=== PATIENT | male | born 1985 | race Caucasian/White ===

== ENCOUNTER 2020-02-22 23:09 | Emergency (ER) | payer MEDICAID ==
[~2020-02-22] VITALS: Ht 167.6 cm; Wt 72.0 kg
[2020-02-23 00:06] LABS: BASOPHILS % 0.5 % (0.0-2.0); EOSINOPHILS % 6.9 % (0.0-5.0); HEMOGLOBIN. 13.1 g/dL (14.0-18.0); LYMPHOCYTES % 33.4 % (20.0-50.0); MEAN CORPUSCULAR HEMOGLOBIN 28.6 pg (28.0-32.0); MEAN CORPUSCULAR VOLUME 83.4 fL (80.0-94.0); MEAN PLATELET VOLUME 7.9 fl (7.4-10.4); MONOCYTES % 8.7 % (2.0-8.0); NEUTROPHILS % 50.5 % (40.0-76.0); PLATELET 301 x1000/uL (130-400); RED BLOOD CELL COUNT 4.56 mill/uL (4.7-6.1); RED CELL DISTRIBUTION WIDTH 13.3 % (11.6-14.6)
[2020-02-23 00:13] LABS: CHLORIDE 103 mEq/L (98-107)
[2020-02-23] MEDS: HYDROCODONE/ACETAMINOPHEN 10/325MG TABLET PO ONE (01:37)
[2020-02-23] MEDS: SULFAMETHOXAZOLE/TRIMETHOPRIM 400/80MG TAB PO ONE (02:07)
[2020-02-23] MEDS: CEPHALEXIN 250MG CAPSULE PO ONE (02:08)
[2020-02-23 02:30] VITALS: BP 153/90
== END 2020-02-23 02:45 | disposition home or self-care (01) ==
LOC: ER 23:38
DX: L03.115 Cellulitis of right lower limb (principal); Z86.11 Personal history of tuberculosis; Z98.890 Other specified postprocedural states
CPT/HCPCS: 36415; 73562; 73590; 73610; 80053; 85025; 93005; 93971; 99285

== ENCOUNTER 2020-04-19 10:05 | Emergency (ER) | payer MEDICAID ==
[~2020-04-19] VITALS: Ht 167.6 cm; Wt 73.0 kg
[2020-04-19 11:31] LABS: BASOPHILS % 0.2 % (0.0-2.0); CHLORIDE 101 mEq/L (98-107); EOSINOPHILS % 0.7 % (0.0-5.0); HEMATOCRIT. 42.9 % (42.0-52.0); HEMOGLOBIN. 14.6 g/dL (14.0-18.0); LYMPHOCYTES % 9.2 % (20.0-50.0); MEAN CORPUSCULAR VOLUME 82.3 fL (80.0-94.0); MEAN PLATELET VOLUME 8.7 fl (7.4-10.4); MONOCYTES % 2.6 % (2.0-8.0); NEUTROPHILS % 87.3 % (40.0-76.0); PLATELET 275 x1000/uL (130-400); RED BLOOD CELL COUNT 5.21 mill/uL (4.7-6.1); RED CELL DISTRIBUTION WIDTH 13.7 % (11.6-14.6)
[2020-04-19] MEDS: DICYCLOMINE 10 MG/5 ML ORAL SYR PO STA ×2 (11:36→11:43)
[2020-04-19] MEDS: MAGNESIUM/ALUMINUM HYDROXIDE/SIMETHICONE 30ML UDC PO STA ×2 (11:36→11:43)
[2020-04-19] MEDS: VISCOUS LIDOCAINE 2% 15 ML UDC PO STA ×2 (11:36→11:43)
[2020-04-19] MEDS: ONDANSETRON 4MG ODT PO STA ×2 (11:36→11:43)
[2020-04-19 11:50] LABS: PROTHROMBIN TIME 10.9 sec (9.6-11.0)
[2020-04-19] MEDS ORDERED: VISCOUS LIDOCAINE 2% 15 ML UDC PO STA (12:04)
[2020-04-19] MEDS ORDERED: DICYCLOMINE 10 MG/5 ML ORAL SYR PO STA (12:04)
[2020-04-19] MEDS ORDERED: MAGNESIUM/ALUMINUM HYDROXIDE/SIMETHICONE 30ML UDC PO STA (12:04)
[2020-04-19] MEDS ORDERED: ONDANSETRON HCL 4MG/2ML INJ IM ONE (12:15)
[2020-04-19 14:40] VITALS: BP 131/79
== END 2020-04-19 14:40 | disposition home or self-care (01) ==
LOC: ER 10:05
DX: R10.13 Epigastric pain (principal); R11.10 Vomiting, unspecified; Z87.19 Personal history of other diseases of the digestive system; Z86.11 Personal history of tuberculosis
CPT/HCPCS: 36415; 71045; 80053; 83690; 85025; 85610; 93005; 96372; 99285; J2405; Q0162

== ENCOUNTER 2020-09-19 05:55 | Emergency (ER) | payer MEDICAID ==
[~2020-09-19] VITALS: Ht 167.6 cm; Wt 76.5 kg
[2020-09-19] MEDS ORDERED: ONDANSETRON HCL 4MG/2ML INJ IV STA (06:33)
[2020-09-19] MEDS ORDERED: FAMOTIDINE 20MG/2ML VIAL IV STA (06:33)
[2020-09-19] MEDS ORDERED: SODIUM CHLORIDE 0.9% 1,000 ML IV ONE (06:45)
[2020-09-19 07:18] LABS: HEMATOCRIT. 41.8 % (42.0-52.0); HEMOGLOBIN. 14.6 g/dL (14.0-18.0); MEAN CORPUSCULAR HEMOGLOBIN 28.5 pg (28.0-32.0); MEAN CORPUSCULAR VOLUME 81.7 fL (80.0-94.0); MEAN PLATELET VOLUME 7.9 fl (7.4-10.4); PLATELET 306 x1000/uL (130-400); RED BLOOD CELL COUNT 5.12 mill/uL (4.7-6.1)
[2020-09-19 07:23] LABS: CHLORIDE 104 mEq/L (98-107)
[2020-09-19 08:31] LABS: CLARITY URINE CLEAR (CLEAR); COLOR URINE YELLOW (YELLOW); KETONES URINE NEGATIVE (NEGATIVE); LEUKOCYTE ESTERASE URINE NEGATIVE (NEGATIVE); NITRITE URINE NEGATIVE (NEGATIVE); OCCULT BLOOD URINE NEGATIVE (NEGATIVE); PH URINE 8.5 (4.5-8.0); PROTEIN URINE TRACE (NEGATIVE); SPECIFIC GRAVITY URINE 1.022 (1.005-1.030); UROBILINOGEN URINE 0.2 E.U./dL (0.2-1.0)
[2020-09-19 09:22] LABS: PLATELET ESTIMATE NORMAL
[2020-09-19] MEDS ORDERED: VISCOUS LIDOCAINE 2% 15 ML UDC PO NR (09:28)
[2020-09-19] MEDS ORDERED: MAGNESIUM/ALUMINUM HYDROXIDE/SIMETHICONE 30ML UDC PO NR (09:28)
[2020-09-19] MEDS ORDERED: ONDA4TAB5 MT (10:50)
[2020-09-19 11:04] VITALS: BP 146/101
== END 2020-09-19 11:10 | disposition home or self-care (01) ==
LOC: ER 05:55
DX: R11.2 Nausea with vomiting, unspecified (principal); R19.7 Diarrhea, unspecified; E86.0 Dehydration; R10.30 Lower abdominal pain, unspecified; R00.0 Tachycardia, unspecified; Z79.899 Other long term (current) drug therapy
CPT/HCPCS: 36415; 80053; 81003; 83690; 85025; 96374; 96375; 99285; J2405; J3490; J7030; Z7610

== ENCOUNTER 2020-09-21 16:55 | Emergency (ER) | payer MEDICAID ==
[~2020-09-21] VITALS: Ht 167.6 cm; Wt 72.0 kg
[~2020-09-21 16:55] MED LIST: ONDA4TAB5 MT
[2020-09-21] MEDS ORDERED: VISCOUS LIDOCAINE 2% 15 ML UDC PO STA (21:55)
[2020-09-21] MEDS ORDERED: MAGNESIUM/ALUMINUM HYDROXIDE/SIMETHICONE 30ML UDC PO STA (21:55)
[2020-09-21] MEDS ORDERED: ONDANSETRON 4MG ODT PO STA (21:55)
[2020-09-21 22:47] LABS: BASOPHILS % 0.7 % (0.0-2.0); EOSINOPHILS % 4.6 % (0.0-5.0); HEMATOCRIT. 35.7 % (42.0-52.0); HEMOGLOBIN. 12.4 g/dL (14.0-18.0); LYMPHOCYTES % 34.2 % (20.0-50.0); MEAN CORPUSCULAR HEMOGLOBIN 28.5 pg (28.0-32.0); MEAN CORPUSCULAR VOLUME 81.8 fL (80.0-94.0); MONOCYTES % 9.7 % (2.0-8.0); NEUTROPHILS % 50.8 % (40.0-76.0); PLATELET 271 x1000/uL (130-400); RED BLOOD CELL COUNT 4.36 mill/uL (4.7-6.1); RED CELL DISTRIBUTION WIDTH 14.1 % (11.6-14.6)
[2020-09-21 22:52] LABS: CHLORIDE 107 mEq/L (98-107)
[2020-09-21] MEDS ORDERED: OMEP20CA14 MT (23:45)
[2020-09-21 23:56] VITALS: BP 144/79
== END 2020-09-21 23:58 | disposition home or self-care (01) ==
LOC: ER 16:55
DX: R10.84 Generalized abdominal pain (principal); R07.9 Chest pain, unspecified; R11.2 Nausea with vomiting, unspecified; R50.9 Fever, unspecified; K21.9 Gastro-esophageal reflux disease without esophagitis; Z79.899 Other long term (current) drug therapy
CPT/HCPCS: 36415; 71045; 80053; 83690; 85025; 99284; Q0162

== ENCOUNTER 2022-07-08 17:07 | Emergency (ER) | payer MEDICAID ==
[~2022-07-08] VITALS: Ht 167.6 cm; Wt 73.0 kg
[~2022-07-08 17:07] MED LIST changes: +OMEP20CA14 MT
[2022-07-08] MEDS ORDERED: KETOROLAC 30MG/ML VIAL IM ONE (21:15)
[2022-07-08] MEDS ORDERED: MAGNESIUM/ALUMINUM HYDROXIDE/SIMETHICONE 30ML UDC PO ONE (21:15)
[2022-07-08] MEDS ORDERED: KETOROLAC 30MG/ML VIAL IM NR (21:45)
[2022-07-08] MEDS ORDERED: MAGNESIUM/ALUMINUM HYDROXIDE/SIMETHICONE 30ML UDC PO NR (21:45)
[2022-07-08 21:49] VITALS: BP 143/91
[2022-07-08] MEDS ORDERED: NAP5EC PO (22:28)
[2022-07-08] MEDS ORDERED: LIDO700A15 TP (22:28)
== END 2022-07-08 23:00 | disposition home or self-care (01) ==
LOC: ER 17:07
DX: R07.89 Other chest pain (principal); R10.31 Right lower quadrant pain
CPT/HCPCS: 71045; 96372; 99283; J1885; Z7610